=== PATIENT | male | born 1985 | race African-American/Black ===

== ENCOUNTER → 2017-04-09 | Outpatient (CLI) | payer BC ==
[~2017-04-09] MED LIST: CLINDAMYCIN HC300 MG PO; LORTAB 7.5-5001 TAB PO; NO MEDICATIONS
--- NOTE | ~2017-04-09 | CR58 ---
[facility] A Service of [facility] & [facility] RADIOLOGY TEXT RESULTS PATIENT: JAZZ BRUSH A LOCATION: [facility] : 85 UNIT #: [id number] AGE: [address]: RONI ODONNELL APRN SEX: M ORDER DR: [id number] [facility] [address] [place], [place] [address] [id number] O MR#: [id number] Acc #: [id number] NAME: JAZZ BRUSH : 1985 SEX: M STUDY DATE/TIME: 04/09/2017 9:29 UNIT: [facility] ROOM: STUDY DESCRIPTION: CR Cervical Spine 2 or 3 Views Attending Physician: Roni Odonnell A.P.R.N. Referring Physician: Roni Odonnell A.P.R.N. Ordering Physician: Roni Odonnell A.P.R.N. Primary Care Physician: Og De León M.D. MEDICAL IMAGING REPORT This report is preliminary unless electronic signature is present EXAM Cervical spine series in 4 views 04/09/2017 COMPARISON STUDIES None CLINICAL HISTORY Routine followup for cervical fusion performed in January 2017, no acute abnormality. FINDINGS There has been anterior fusion at C4-5, and there is slight discogenic change at 5-6 and 6-7, and a very slight reversal of lordosis at 3-4 but no evidence of device loosening or failure is seen. No acute abnormality. Dictated by... Addison Taylor M.D. THIS IS AN ELECTRONICALLY VERIFIED REPORT Adidson Taylor M.D. at 04/11/2017 10:31 AM MIRTHA/froylan TD: 04/09/2017 15:00 JOB #: [id number] MEDICAL IMAGING REPORT Page 1 of 1 COPY
== END | disposition home or self-care (01) ==
LOC: CRAD 09:15
DX: M50.10 Cervical disc disorder with radiculopathy, unspecified cervical region (principal); Z98.1 Arthrodesis status
CPT/HCPCS: 72040

== ENCOUNTER → 2017-06-21 | Outpatient (CLI) | payer BC ==
--- NOTE | ~2017-06-21 | CR58 ---
[facility] A Service of [facility] & [facility] RADIOLOGY TEXT RESULTS PATIENT: JAZZ BRUSH LOCATION: [facility] : 85 UNIT #: [id number] AGE: [address]: Ashley Segura SEX: M ORDER DR: [id number] [facility] [address] [place], [place] [address] [id number] O MR#: [id number] Acc #: [id number] NAME: JAZZ BRUSH : 1985 SEX: M STUDY DATE/TIME: 06/21/2017 14:35 UNIT: [facility] ROOM: STUDY DESCRIPTION: CR Cervical Spine 2 or 3 Views Attending Physician: Ashley Segura A.P.R.N. Referring Physician: Ashley Segura A.P.R.N. Ordering Physician: Ashley Segura A.P.R.N. Primary Care Physician: Og De León M.D. MEDICAL IMAGING REPORT This report is preliminary unless electronic signature is present EXAM Cervical spine, 3 views. INDICATION Neck pain for 3 months. Follow up ACDF. COMPARISON 04/09/2017 FINDINGS Stable ACDF of C4-C5. The alignment is stable. Odontoid intact and the lateral masses are well aligned. IMPRESSION Stable postoperative change. Dictated by... Augie Stinson M.D. THIS IS AN ELECTRONICALLY VERIFIED REPORT Augie Stinson M.D. at 06/22/2017 7:18 AM MARIAJOSE/wagner TD: 06/21/2017 22:50 JOB #: [id number] MEDICAL IMAGING REPORT Page 1 of 1 COPY
== END | disposition home or self-care (01) ==
LOC: CRAD 14:05
DX: M54.2 Cervicalgia (principal); Z98.890 Other specified postprocedural states; Z91.81 History of falling
CPT/HCPCS: 72040